=== PATIENT | male | born 1945 | race Caucasian/White ===

== ENCOUNTER → 2016-09-19 | Outpatient (CLI) | payer MEDICARE ==
[~2016-09-19] MED LIST: AMLO5TAB4 PO; AMOX-291 PO; AMOX1TAB61 PO; ASPI-496 PO; ATOR80TA PO; CITA20TA5 PO; CLOP75TA22 PO; GABA100C PO; HYDR-3307 PO; ISOS30TA PO; LISI-167 PO; METH50TA3 PO; METO25TA35 PO; REGADENOSON 0.4 MG/5 ML SYRINGE ONE; SIMV20TA PO; VANC125C11; VANCO PO; [UNRECOGNIZED DRUG - CODE] PO
== END | disposition home or self-care (01) ==
LOC: CFH 08:03
PROVIDERS: ATTEND Internal Medicine Cardiovascular Disease
DX: I10 Essential (primary) hypertension (principal); I25.10 Atherosclerotic heart disease of native coronary artery without angina pectoris; R42 Dizziness and giddiness; Z95.1 Presence of aortocoronary bypass graft
CPT/HCPCS: 78452; 93017; A9502; J2785

== ENCOUNTER 2017-10-30 15:31 | Inpatient (IN) | payer MEDICARE ==
[~2017-10-30] VITALS: Ht 180.3 cm; Wt 96.0 kg
[~2017-10-30 15:31] MED LIST changes: -AMLO5TAB2 PO; -BRIM5DRO3 EACHEYE; -CALC0.25 PO; -CHOL2000 PO; -DORZ10DR26 EACHEYE; -HYOS0.1268 PO; -LATA2.5D3 EACHEYE; -MAGNESIUM PO; -TAMS-11 PO; -[UNRECOGNIZED DRUG - OTHER] PO
[2017-10-30] MEDS ORDERED: SODIUM CHLORIDE FLUSH 10ML SYR IVF ONE (16:00)
[2017-10-30 16:34] LABS: BASOPHILS # (AUTO) 0.01 x10^3/uL (0-0.1); BASOPHILS % (AUTO) 0 % (0-1); EOSINOPHILS % (AUTO) 0 % (1-7); LYMPHOCYTES # (AUTO) 0.43 x10^3/uL (1-3.4); LYMPHOCYTES % (AUTO) 5 % (22-44); MD NO; MEAN CORPUSCULAR HEMOGLOBIN 30.5 pg (27.5-34.5); MEAN CORPUSCULAR HGB CONC 32.7 g/dL (33.2-36.2); MEAN CORPUSCULAR VOLUME 93.2 fL (81-97); MEAN PLATELET VOLUME 8.6 fL (7.4-10.4); MONOCYTES # (AUTO) 0.88 x10^3/uL (0.2-0.8); MONOCYTES % (AUTO) 9 % (2-9); NEUTROPHILS # (AUTO) 8.15 x10^3/uL (1.8-6.8); NEUTROPHILS % (AUTO) 86 % (42-75); PLATELET COUNT 197 x10^3/uL (130-400); RED BLOOD COUNT 3.68 x10^6/uL (4.38-5.82); RED CELL DISTRIBUTION WIDTH 15.7 % (9.4-14.8)
[2017-10-30 16:42] LABS: INTERNATIONAL NORMALIZED RATIO 1.04 (0.93-1.1); PROTHROMBIN TIME 10.7 Seconds (9.6-11.5)
[2017-10-30 16:45] LABS: ALBUMIN 3.1 g/dL (3.4-5.0); ANION GAP 5 mmol/L (5-15); CALCIUM 7.9 mg/dL (8.5-10.1); CHLORIDE 102 mmol/L (98-107)
[2017-10-30 16:52] LABS: CREATININE 3.49 mg/dL (0.7-1.3)
[2017-10-30 17:01] LABS: TROPONIN I 0.137 ng/mL (0.000-0.045)
[2017-10-30] MEDS ORDERED: FUROSEMIDE 40 MG/4 ML IVPush ONE (17:30)
[2017-10-30] MEDS ORDERED: NITROGLYCERIN OINT 2%, 1GM TP ONE ×2 (17:30→17:37)
[2017-10-30] MEDS ORDERED: FUROSEMIDE 40 MG/4 ML ONE (17:36)
[2017-10-30] MEDS ORDERED: HYOS0.1268 PO (18:06)
[2017-10-30] MEDS ORDERED: CALC0.25 PO (18:06)
[2017-10-30] MEDS ORDERED: AMLO5TAB2 PO (18:06)
[2017-10-30] MEDS ORDERED: [UNRECOGNIZED DRUG - OTHER] PO (18:06)
[2017-10-30] MEDS ORDERED: LATA2.5D3 EACHEYE (18:06)
[2017-10-30] MEDS ORDERED: CHOL2000 PO (18:06)
[2017-10-30] MEDS ORDERED: BRIM5DRO3 EACHEYE (18:06)
[2017-10-30] MEDS ORDERED: TAMS-11 PO (18:06)
[2017-10-30] MEDS ORDERED: DORZ10DR26 EACHEYE (18:06)
[2017-10-30] MEDS ORDERED: MAGNESIUM PO (18:06)
[2017-10-30] MEDS ORDERED: ONDANSETRON 2MG/ML, 2ML IVPush PRN (18:30)
[2017-10-30] MEDS ORDERED: ONDANSETRON ODT 4 MG PO PRN (18:30)
[2017-10-30] MEDS ORDERED: AZITHROMYCIN 500 MG in SODIUM CHLORIDE 0.9% 250 ML IV SCH (18:30)
[2017-10-30] MEDS ORDERED: hydrALAzine 20 MG/ML, 1ML IVPush PRN (18:30)
[2017-10-30] MEDS ORDERED: ASPIRIN 325 MG TABLET PO ONE (18:30)
[2017-10-30] MEDS ORDERED: ACETAMINOPHEN 325 MG TABLET PO PRN (18:30)
[2017-10-30] MEDS ORDERED: METOCLOPRAMIDE 5 MG/ML, 2ML IVPush PRN (18:30)
[2017-10-30] MEDS ORDERED: CEFTRIAXONE PMX 2GM/50ML 50 ML IV SCH (18:30)
[2017-10-30] MEDS ORDERED: HYDROcodone/APAP 10/325 MG TABLET PO PRN (18:30)
[2017-10-30 18:43] VITALS: BP 149/86
[2017-10-30 19:04] LABS: TROPONIN I 0.143 ng/mL (0.000-0.045)
[2017-10-30] MEDS: ENOXAPARIN 30 MG/0.3 ML SQ SCH (20:15)
[2017-10-30] MEDS: FAMOTIDINE 20 MG TABLET PO SCH (20:15)
[2017-10-30] MEDS: LISINOPRIL 10 MG TABLET PO SCH (20:16)
[2017-10-30] MEDS: ATORVASTATIN 80 MG TABLET PO SCH (20:16)
[2017-10-30] MEDS: METOPROLOL TARTRATE 25 MG TABLET PO SCH (20:16)
[2017-10-30] MEDS: FAMOTIDINE 20 MG/2 ML IVPush SCH (20:17)
[2017-10-30] MEDS ORDERED: ACETAZOLAMIDE PO SCH (21:00)
[2017-10-30] MEDS ORDERED: ALBUTEROL SULFATE 2.5 MG/3 ML NPPB PRN (22:00)
[2017-10-31 00:46] VITALS: BP 120/69
[2017-10-31 01:10] LABS: BASOPHILS # (AUTO) 0.02 x10^3/uL (0-0.1); BASOPHILS % (AUTO) 0 % (0-1); EOSINOPHILS % (AUTO) 0 % (1-7); LYMPHOCYTES % (AUTO) 7 % (22-44); MD NO; MEAN CORPUSCULAR HEMOGLOBIN 30.7 pg (27.5-34.5); MEAN PLATELET VOLUME 8.6 fL (7.4-10.4); MONOCYTES # (AUTO) 0.92 x10^3/uL (0.2-0.8); MONOCYTES % (AUTO) 10 % (2-9); NEUTROPHILS # (AUTO) 7.45 x10^3/uL (1.8-6.8); NEUTROPHILS % (AUTO) 83 % (42-75); PLATELET COUNT 201 x10^3/uL (130-400); RED BLOOD COUNT 3.33 x10^6/uL (4.38-5.82); RED CELL DISTRIBUTION WIDTH 15.5 % (9.4-14.8)
[2017-10-31 01:16] LABS: ANION GAP 6 mmol/L (5-15); CALCIUM 8.3 mg/dL (8.5-10.1); CHLORIDE 103 mmol/L (98-107)
[2017-10-31 01:17] LABS: CREATININE 3.55 mg/dL (0.7-1.3)
[2017-10-31] MEDS ORDERED: ASPIRIN 325 MG TABLET EC PO SCH (06:00)
[2017-10-31] MEDS: METOPROLOL TARTRATE 25 MG TABLET PO SCH ×2 (06:25→18:13)
[2017-10-31] MEDS ORDERED: FUROSEMIDE 20 MG/2 ML IV SCH (07:30)
[2017-10-31 07:56] VITALS: BP 114/70
[2017-10-31] MEDS: ALBUTEROL SULFATE 2.5 MG/3 ML NPPB SCH ×2 (08:00→17:43)
[2017-10-31] MEDS: POTASSIUM CHLORIDE 20 MEQ PACKET PO SCH (08:33)
[2017-10-31] MEDS: AMLODIPINE 5 MG TABLET PO SCH (08:34)
[2017-10-31] MEDS: CLOPIDOGREL 75 MG TABLET PO SCH (08:34)
[2017-10-31] MEDS: FAMOTIDINE 20 MG TABLET PO SCH (08:34)
[2017-10-31] MEDS: CITALOPRAM 20 MG TABLET PO SCH (08:35)
[2017-10-31] MEDS: FAMOTIDINE 20 MG/2 ML IVPush SCH (08:35)
[2017-10-31] MEDS: ISOSORBIDE MONONITRATE ER 30 MG TABLET PO SCH (08:36)
[2017-10-31] MEDS: ASPIRIN 81 MG TABLET EC PO SCH (08:36)
[2017-10-31] MEDS: LISINOPRIL 10 MG TABLET PO SCH (09:26)
[2017-10-31 11:14] LABS: TROPONIN I 0.106 ng/mL (0.000-0.045)
[2017-10-31] MEDS ORDERED: FUROSEMIDE 20 MG/2 ML IVPush ONE (11:30)
[2017-10-31] MEDS ORDERED: AMPICILLIN/SULBACTAM 1,500 MG in SODIUM CHLORIDE 0.9% 50 ML IV SCH (11:30)
[2017-10-31] MEDS ORDERED: AZITHROMYCIN 500 MG in SODIUM CHLORIDE 0.9% 250 ML IV SCH (12:00)
[2017-10-31 13:54] VITALS: BP 91/49
[2017-10-31] MEDS ORDERED: METOCLOPRAMIDE 5 MG/ML, 2ML IVPush PRN (14:54)
[2017-10-31] MEDS ORDERED: [UNRECOGNIZED DRUG - OTHER] MC SCH (15:00)
[2017-10-31] MEDS ORDERED: FAMOTIDINE 20 MG TABLET PO SCH (15:03)
[2017-10-31] MEDS: FUROSEMIDE 40 MG/4 ML IV SCH (16:09)
[2017-10-31] MEDS: ENOXAPARIN 30 MG/0.3 ML SQ SCH (18:13)
[2017-10-31 19:44] VITALS: BP 111/69
[2017-10-31] MEDS ORDERED: FUROSEMIDE 40 MG/4 ML IV SCH (20:00)
[2017-10-31] MEDS ORDERED: POTASSIUM CHLORIDE 20 MEQ TAB.ER.PRT PO ONE (20:00)
[2017-10-31] MEDS ORDERED: FUROSEMIDE 40 MG/4 ML IV ONE (21:00)
[2017-10-31] MEDS: ATORVASTATIN 80 MG TABLET PO SCH (21:00)
[2017-10-31] MEDS: morphine SULFATE 10 MG/ML, 1ML IVPush PRN ×2 (21:13→23:49)
[2017-10-31] MEDS ORDERED: AMPICILLIN/SULBACTAM 3 GM in SODIUM CHLORIDE 0.9% 100 ML IV SCH (23:00)
[2017-11-01 01:32] LABS: CHLORIDE,URINE RANDOM 51 mmol/L; POTASSIUM,URINE RANDOM 48 mmol/L; SODIUM,URINE RANDOM 38 mmol/L
[2017-11-01 01:55] VITALS: BP 103/64
[2017-11-01] MEDS: morphine SULFATE 10 MG/ML, 1ML IVPush PRN (02:52)
[2017-11-01 05:27] LABS: BASOPHILS # (AUTO) 0.04 x10^3/uL (0-0.1); BASOPHILS % (AUTO) 1 % (0-1); EOSINOPHILS # (AUTO) 0.09 x10^3/uL (0-0.4); EOSINOPHILS % (AUTO) 1 % (1-7); LYMPHOCYTES # (AUTO) 0.75 x10^3/uL (1-3.4); LYMPHOCYTES % (AUTO) 11 % (22-44); MD NO; MEAN CORPUSCULAR HEMOGLOBIN 30.4 pg (27.5-34.5); MEAN CORPUSCULAR HGB CONC 32.5 g/dL (33.2-36.2); MEAN CORPUSCULAR VOLUME 93.4 fL (81-97); MEAN PLATELET VOLUME 8.5 fL (7.4-10.4); MONOCYTES # (AUTO) 0.71 x10^3/uL (0.2-0.8); MONOCYTES % (AUTO) 10 % (2-9); NEUTROPHILS # (AUTO) 5.38 x10^3/uL (1.8-6.8); NEUTROPHILS % (AUTO) 77 % (42-75); PLATELET COUNT 214 x10^3/uL (130-400); RED BLOOD COUNT 3.29 x10^6/uL (4.38-5.82); RED CELL DISTRIBUTION WIDTH 15.9 % (9.4-14.8)
[2017-11-01 05:33] LABS: CHLORIDE 104 mmol/L (98-107)
[2017-11-01 05:50] LABS: ALANINE AMINOTRANSFERASE 24 U/L (12-78); ALBUMIN 2.7 g/dL (3.4-5.0); ALKALINE PHOSPHATASE 64 U/L (45-117); ANION GAP 5 mmol/L (5-15); BILIRUBIN,TOTAL 0.5 mg/dL (0.2-1.0); CALCIUM 7.9 mg/dL (8.5-10.1); TOTAL PROTEIN 6.8 g/dL (6.4-8.2)
[2017-11-01] MEDS: METOPROLOL TARTRATE 25 MG TABLET PO SCH ×2 (06:25→17:32)
[2017-11-01] MEDS: ALBUTEROL SULFATE 2.5 MG/3 ML NPPB SCH (07:45)
[2017-11-01] MEDS: ISOSORBIDE MONONITRATE ER 30 MG TABLET PO SCH (08:19)
[2017-11-01] MEDS: FUROSEMIDE 40 MG/4 ML IV SCH (08:19)
[2017-11-01] MEDS: AMLODIPINE 5 MG TABLET PO SCH (08:19)
[2017-11-01] MEDS: CLOPIDOGREL 75 MG TABLET PO SCH (08:19)
[2017-11-01] MEDS: POTASSIUM CHLORIDE 20 MEQ PACKET PO SCH (08:19)
[2017-11-01] MEDS: CITALOPRAM 20 MG TABLET PO SCH (08:19)
[2017-11-01] MEDS: ASPIRIN 81 MG TABLET EC PO SCH (08:19)
[2017-11-01] MEDS: FAMOTIDINE 20 MG TABLET PO SCH (08:19)
[2017-11-01 08:53] VITALS: BP 114/72
[2017-11-01] MEDS ORDERED: FUROSEMIDE 100 MG/10 ML IV ONE (10:30)
[2017-11-01] MEDS: TAMSULOSIN 0.4 MG CAP.ER.24H PO SCH (10:56)
[2017-11-01] MEDS: BRIMONIDINE TARTRATE OPHTH 0.15%, 5ML EACHEYE SCH ×2 (10:56→20:12)
[2017-11-01] MEDS: DORZOLAMIDE OPHTH 2%, 10ML EACHEYE SCH ×2 (10:56→20:12)
[2017-11-01 15:58] VITALS: BP 109/65
[2017-11-01] MEDS: ENOXAPARIN 30 MG/0.3 ML SQ SCH (17:32)
[2017-11-01 19:35] VITALS: BP 100/51
[2017-11-01] MEDS: LATANOPROST OPHTH 0.005%, 2.5ML EACHEYE SCH (20:12)
[2017-11-01] MEDS: ATORVASTATIN 80 MG TABLET PO SCH (20:12)
[2017-11-02 03:21] VITALS: BP 97/49
[2017-11-02 05:31] LABS: BASOPHILS # (AUTO) 0.01 x10^3/uL (0-0.1); BASOPHILS % (AUTO) 0 % (0-1); EOSINOPHILS # (AUTO) 0.06 x10^3/uL (0-0.4); EOSINOPHILS % (AUTO) 1 % (1-7); LYMPHOCYTES # (AUTO) 0.62 x10^3/uL (1-3.4); LYMPHOCYTES % (AUTO) 8 % (22-44); MD NO; MEAN CORPUSCULAR HEMOGLOBIN 29.7 pg (27.5-34.5); MEAN CORPUSCULAR HGB CONC 31.7 g/dL (33.2-36.2); MEAN CORPUSCULAR VOLUME 93.7 fL (81-97); MEAN PLATELET VOLUME 8.6 fL (7.4-10.4); MONOCYTES # (AUTO) 0.56 x10^3/uL (0.2-0.8); MONOCYTES % (AUTO) 8 % (2-9); NEUTROPHILS # (AUTO) 6.15 x10^3/uL (1.8-6.8); NEUTROPHILS % (AUTO) 83 % (42-75); PLATELET COUNT 230 x10^3/uL (130-400); RED BLOOD COUNT 3.29 x10^6/uL (4.38-5.82); RED CELL DISTRIBUTION WIDTH 15.5 % (9.4-14.8)
[2017-11-02 05:40] LABS: CALCIUM 8.3 mg/dL (8.5-10.1); CREATININE 5.92 mg/dL (0.7-1.3)
[2017-11-02 05:53] LABS: ANION GAP 5 mmol/L (5-15); CHLORIDE 103 mmol/L (98-107)
[2017-11-02] MEDS: METOPROLOL TARTRATE 25 MG TABLET PO SCH (05:58)
[2017-11-02] MEDS ORDERED: SODIUM POLYSTYRENE SULFONATE ORAL SUSP PO ONE (07:30)
[2017-11-02] MEDS: HEPARIN 5,000 UNITS/ML, 1ML SQ SCH ×3 (07:30→23:30)
[2017-11-02] MEDS ORDERED: INSULIN REGULAR 100 UNITS/ML, 3ML VIAL IVPush ONE (07:30)
[2017-11-02] MEDS ORDERED: CALCIUM GLUCONATE 4.6 MEQ in SODIUM CHLORIDE 0.9% 50 ML IV ONE (07:30)
[2017-11-02] MEDS ORDERED: DEXTROSE 50%, 50ML VIAL IVPush ONE (07:30)
[2017-11-02] MEDS ORDERED: DEXTROSE 50%, 50ML SYRINGE IVPush ONE (08:00)
[2017-11-02 08:39] VITALS: BP 100/67
[2017-11-02] MEDS: ASPIRIN 81 MG TABLET EC PO SCH (08:49)
[2017-11-02] MEDS: BRIMONIDINE TARTRATE OPHTH 0.15%, 5ML EACHEYE SCH ×2 (08:50→21:23)
[2017-11-02] MEDS: TAMSULOSIN 0.4 MG CAP.ER.24H PO SCH (08:51)
[2017-11-02] MEDS: CITALOPRAM 20 MG TABLET PO SCH (08:52)
[2017-11-02] MEDS: DORZOLAMIDE OPHTH 2%, 10ML EACHEYE SCH ×2 (08:55→21:23)
[2017-11-02] MEDS: CLOPIDOGREL 75 MG TABLET PO SCH (09:00)
[2017-11-02] MEDS ORDERED: ARANESP 100 MCG/ML **ESRD SQ SCH (10:30)
[2017-11-02 10:54] LABS: ANION GAP 6 mmol/L (5-15); CHLORIDE 103 mmol/L (98-107); CREATININE 6.19 mg/dL (0.7-1.3)
[2017-11-02] MEDS ORDERED: SODIUM BICARB 8.4%, 50ML SYRINGE IVPush STA (13:10)
[2017-11-02] MEDS ORDERED: NOREPINEPHRINE 1 MG/ML, 4ML ONE (13:26)
[2017-11-02] MEDS ORDERED: NOREPINEPHRINE 16 MG in SODIUM CHLORIDE 0.9% 234 ML IV PRN (15:00)
[2017-11-02] MEDS: FAMOTIDINE 20 MG TABLET PO SCH (17:15)
[2017-11-02] MEDS: ISOSORBIDE MONONITRATE ER 30 MG TABLET PO SCH (17:15)
[2017-11-02] MEDS: ATORVASTATIN 80 MG TABLET PO SCH (21:00)
[2017-11-02] MEDS: LATANOPROST OPHTH 0.005%, 2.5ML EACHEYE SCH (21:23)
[2017-11-03 04:31] LABS: BASOPHILS # (AUTO) 0.03 x10^3/uL (0-0.1); BASOPHILS % (AUTO) 1 % (0-1); EOSINOPHILS # (AUTO) 0.05 x10^3/uL (0-0.4); EOSINOPHILS % (AUTO) 1 % (1-7); LYMPHOCYTES # (AUTO) 0.76 x10^3/uL (1-3.4); LYMPHOCYTES % (AUTO) 13 % (22-44); MD NO; MEAN CORPUSCULAR HEMOGLOBIN 30.4 pg (27.5-34.5); MEAN CORPUSCULAR HGB CONC 32.5 g/dL (33.2-36.2); MEAN CORPUSCULAR VOLUME 93.4 fL (81-97); MEAN PLATELET VOLUME 8.3 fL (7.4-10.4); MONOCYTES # (AUTO) 0.64 x10^3/uL (0.2-0.8); MONOCYTES % (AUTO) 11 % (2-9); NEUTROPHILS # (AUTO) 4.54 x10^3/uL (1.8-6.8); NEUTROPHILS % (AUTO) 76 % (42-75); PLATELET COUNT 207 x10^3/uL (130-400); RED BLOOD COUNT 3.29 x10^6/uL (4.38-5.82); RED CELL DISTRIBUTION WIDTH 15.4 % (9.4-14.8)
[2017-11-03 04:42] LABS: ALANINE AMINOTRANSFERASE 21 U/L (12-78); ALBUMIN 2.6 g/dL (3.4-5.0); ANION GAP 8 mmol/L (5-15); CALCIUM 8.2 mg/dL (8.5-10.1); CHLORIDE 102 mmol/L (98-107); CREATININE 5.57 mg/dL (0.7-1.3)
[2017-11-03 04:44] LABS: ALKALINE PHOSPHATASE 59 U/L (45-117); BILIRUBIN,TOTAL 0.7 mg/dL (0.2-1.0); TOTAL PROTEIN 6.4 g/dL (6.4-8.2)
[2017-11-03] MEDS: ALBUTEROL SULFATE 2.5 MG/3 ML NPPB SCH ×3 (08:40→19:53)
[2017-11-03] MEDS: ISOSORBIDE MONONITRATE ER 30 MG TABLET PO SCH (08:52)
[2017-11-03] MEDS: HEPARIN 5,000 UNITS/ML, 1ML SQ SCH ×3 (09:14→23:48)
[2017-11-03] MEDS: DORZOLAMIDE OPHTH 2%, 10ML EACHEYE SCH (09:15)
[2017-11-03] MEDS: FAMOTIDINE 20 MG TABLET PO SCH (09:15)
[2017-11-03] MEDS: BRIMONIDINE TARTRATE OPHTH 0.15%, 5ML EACHEYE SCH (09:15)
[2017-11-03] MEDS: TAMSULOSIN 0.4 MG CAP.ER.24H PO SCH (09:15)
[2017-11-03] MEDS: ASPIRIN 81 MG TABLET EC PO SCH (09:15)
[2017-11-03] MEDS: CITALOPRAM 20 MG TABLET PO SCH (09:15)
[2017-11-03] MEDS: CLOPIDOGREL 75 MG TABLET PO SCH (09:15)
[2017-11-03] MEDS ORDERED: ALBUMIN HUMAN 25% 50 ML IV PRN (09:30)
[2017-11-03 20:09] VITALS: BP 125/56
[2017-11-03] MEDS: ATORVASTATIN 80 MG TABLET PO SCH (21:03)
[2017-11-03] MEDS: DORZOLAMIDE OPHTH 2%, 10ML LEFTEYE SCH (21:04)
[2017-11-03] MEDS: BRIMONIDINE TARTRATE OPHTH 0.15%, 5ML LEFTEYE SCH (21:05)
[2017-11-03] MEDS: LATANOPROST OPHTH 0.005%, 2.5ML LEFTEYE SCH (21:25)
[2017-11-04 02:00] VITALS: BP 128/75
[2017-11-04] MEDS: HEPARIN 5,000 UNITS/ML, 1ML SQ SCH ×2 (07:36→16:08)
[2017-11-04 09:08] VITALS: BP 106/50
[2017-11-04] MEDS: TAMSULOSIN 0.4 MG CAP.ER.24H PO SCH (09:10)
[2017-11-04] MEDS: ASPIRIN 81 MG TABLET EC PO SCH (09:10)
[2017-11-04] MEDS: BRIMONIDINE TARTRATE OPHTH 0.15%, 5ML LEFTEYE SCH ×2 (09:10→21:28)
[2017-11-04] MEDS: CLOPIDOGREL 75 MG TABLET PO SCH (09:10)
[2017-11-04] MEDS: DORZOLAMIDE OPHTH 2%, 10ML LEFTEYE SCH ×2 (09:10→21:28)
[2017-11-04] MEDS: CITALOPRAM 20 MG TABLET PO SCH (09:10)
[2017-11-04] MEDS: FAMOTIDINE 20 MG TABLET PO SCH (09:10)
[2017-11-04] MEDS: ALBUTEROL SULFATE 2.5 MG/3 ML NPPB SCH (09:30)
[2017-11-04] MEDS: ISOSORBIDE MONONITRATE ER 30 MG TABLET PO SCH (10:12)
[2017-11-04 14:31] VITALS: BP 110/60
[2017-11-04] MEDS ORDERED: LACTULOSE 20 GM/30 ML UDC PO PRN (17:00)
[2017-11-04] MEDS ORDERED: BISACODYL 10 MG SUPP PR PRN (17:00)
[2017-11-04 19:22] VITALS: BP 128/75
[2017-11-04] MEDS: SENNA/DOCUSATE TABLET PO SCH (21:00)
[2017-11-04] MEDS ORDERED: ALBUTEROL SULFATE 2.5 MG/3 ML NPPB SCH (21:00)
[2017-11-04] MEDS: ATORVASTATIN 80 MG TABLET PO SCH (21:26)
[2017-11-04] MEDS: LATANOPROST OPHTH 0.005%, 2.5ML LEFTEYE SCH (21:27)
[2017-11-05 00:35] VITALS: BP 122/77
[2017-11-05] MEDS: HEPARIN 5,000 UNITS/ML, 1ML SQ SCH ×3 (00:36→17:52)
[2017-11-05 05:06] LABS: ALANINE AMINOTRANSFERASE 44 U/L (12-78); ALBUMIN 2.7 g/dL (3.4-5.0); ANION GAP 7 mmol/L (5-15); CALCIUM 8.4 mg/dL (8.5-10.1); CHLORIDE 103 mmol/L (98-107); CREATININE 3.52 mg/dL (0.7-1.3)
[2017-11-05 05:08] LABS: ALKALINE PHOSPHATASE 64 U/L (45-117); BILIRUBIN,TOTAL 0.8 mg/dL (0.2-1.0); TOTAL PROTEIN 6.4 g/dL (6.4-8.2)
[2017-11-05 05:19] LABS: BASOPHILS # (AUTO) 0.03 x10^3/uL (0-0.1); BASOPHILS % (AUTO) 1 % (0-1); EOSINOPHILS # (AUTO) 0.09 x10^3/uL (0-0.4); EOSINOPHILS % (AUTO) 1 % (1-7); LYMPHOCYTES # (AUTO) 0.85 x10^3/uL (1-3.4); LYMPHOCYTES % (AUTO) 13 % (22-44); MD NO; MEAN CORPUSCULAR HEMOGLOBIN 30.4 pg (27.5-34.5); MEAN CORPUSCULAR HGB CONC 32.8 g/dL (33.2-36.2); MEAN CORPUSCULAR VOLUME 92.5 fL (81-97); MEAN PLATELET VOLUME 8.6 fL (7.4-10.4); MONOCYTES # (AUTO) 0.77 x10^3/uL (0.2-0.8); MONOCYTES % (AUTO) 12 % (2-9); NEUTROPHILS % (AUTO) 73 % (42-75); PLATELET COUNT 226 x10^3/uL (130-400); RED CELL DISTRIBUTION WIDTH 15.2 % (9.4-14.8)
[2017-11-05 06:44] VITALS: BP 135/65
[2017-11-05] MEDS: ISOSORBIDE MONONITRATE ER 30 MG TABLET PO SCH (09:27)
[2017-11-05] MEDS: DORZOLAMIDE OPHTH 2%, 10ML LEFTEYE SCH ×2 (09:41→20:17)
[2017-11-05] MEDS: BRIMONIDINE TARTRATE OPHTH 0.15%, 5ML LEFTEYE SCH ×2 (09:41→20:16)
[2017-11-05] MEDS: FAMOTIDINE 20 MG TABLET PO SCH (09:42)
[2017-11-05] MEDS: CITALOPRAM 20 MG TABLET PO SCH (09:42)
[2017-11-05] MEDS: DOCUSATE 100 MG CAPSULE PO SCH (09:42)
[2017-11-05] MEDS: TAMSULOSIN 0.4 MG CAP.ER.24H PO SCH (09:42)
[2017-11-05] MEDS: ASPIRIN 81 MG TABLET EC PO SCH (09:42)
[2017-11-05] MEDS: CLOPIDOGREL 75 MG TABLET PO SCH (09:42)
[2017-11-05] MEDS ORDERED: SIMETHICONE 80 MG CHEW TAB PO PRN (12:30)
[2017-11-05 14:05] VITALS: BP 125/75
[2017-11-05 19:17] VITALS: BP 148/79
[2017-11-05 20:00] VITALS: BP 145/85
[2017-11-05 20:10] VITALS: BP 148/85
[2017-11-05] MEDS: LATANOPROST OPHTH 0.005%, 2.5ML LEFTEYE SCH (20:17)
[2017-11-05] MEDS: SENNA/DOCUSATE TABLET PO SCH (20:17)
[2017-11-05] MEDS: ATORVASTATIN 80 MG TABLET PO SCH (20:17)
[2017-11-06] MEDS: HEPARIN 5,000 UNITS/ML, 1ML SQ SCH ×3 (02:31→17:29)
[2017-11-06 02:59] VITALS: BP 139/78
[2017-11-06 07:26] VITALS: BP 157/80
[2017-11-06 08:23] LABS: BASOPHILS # (AUTO) 0.03 x10^3/uL (0-0.1); BASOPHILS % (AUTO) 1 % (0-1); EOSINOPHILS # (AUTO) 0.09 x10^3/uL (0-0.4); EOSINOPHILS % (AUTO) 1 % (1-7); LYMPHOCYTES # (AUTO) 1.02 x10^3/uL (1-3.4); LYMPHOCYTES % (AUTO) 16 % (22-44); MD NO; MEAN CORPUSCULAR HEMOGLOBIN 29.8 pg (27.5-34.5); MEAN CORPUSCULAR HGB CONC 32.3 g/dL (33.2-36.2); MEAN CORPUSCULAR VOLUME 92.1 fL (81-97); MEAN PLATELET VOLUME 8.1 fL (7.4-10.4); MONOCYTES # (AUTO) 0.66 x10^3/uL (0.2-0.8); MONOCYTES % (AUTO) 10 % (2-9); NEUTROPHILS # (AUTO) 4.56 x10^3/uL (1.8-6.8); NEUTROPHILS % (AUTO) 72 % (42-75); PLATELET COUNT 244 x10^3/uL (130-400); RED BLOOD COUNT 3.75 x10^6/uL (4.38-5.82); RED CELL DISTRIBUTION WIDTH 15.4 % (9.4-14.8)
[2017-11-06 08:35] LABS: ANION GAP 6 mmol/L (5-15); CALCIUM 8.6 mg/dL (8.5-10.1); CHLORIDE 102 mmol/L (98-107)
[2017-11-06 08:36] LABS: CREATININE 3.33 mg/dL (0.7-1.3)
[2017-11-06] MEDS: DORZOLAMIDE OPHTH 2%, 10ML LEFTEYE SCH ×2 (09:17→21:28)
[2017-11-06] MEDS: BRIMONIDINE TARTRATE OPHTH 0.15%, 5ML LEFTEYE SCH ×2 (09:17→21:29)
[2017-11-06] MEDS: ISOSORBIDE MONONITRATE ER 30 MG TABLET PO SCH (09:17)
[2017-11-06] MEDS: ASPIRIN 81 MG TABLET EC PO SCH (09:17)
[2017-11-06] MEDS: DOCUSATE 100 MG CAPSULE PO SCH (09:18)
[2017-11-06] MEDS: CITALOPRAM 20 MG TABLET PO SCH (09:18)
[2017-11-06] MEDS: FAMOTIDINE 20 MG TABLET PO SCH (09:18)
[2017-11-06] MEDS: TAMSULOSIN 0.4 MG CAP.ER.24H PO SCH (09:18)
[2017-11-06] MEDS: CLOPIDOGREL 75 MG TABLET PO SCH (09:18)
[2017-11-06 13:31] VITALS: BP 122/75
[2017-11-06] MEDS: ATORVASTATIN 80 MG TABLET PO SCH (21:29)
[2017-11-06] MEDS: LATANOPROST OPHTH 0.005%, 2.5ML LEFTEYE SCH (21:29)
[2017-11-06 21:33] VITALS: BP 112/69
[2017-11-07] MEDS: HEPARIN 5,000 UNITS/ML, 1ML SQ SCH ×2 (01:29→09:29)
[2017-11-07 03:35] VITALS: BP 124/75
[2017-11-07 04:46] LABS: ALANINE AMINOTRANSFERASE 40 U/L (12-78); ALBUMIN 2.6 g/dL (3.4-5.0); ANION GAP 6 mmol/L (5-15); CALCIUM 8.2 mg/dL (8.5-10.1); CHLORIDE 103 mmol/L (98-107); CREATININE 3.35 mg/dL (0.7-1.3)
[2017-11-07 04:48] LABS: ALKALINE PHOSPHATASE 58 U/L (45-117); BILIRUBIN,TOTAL 0.6 mg/dL (0.2-1.0)
[2017-11-07 07:49] VITALS: BP 126/75
[2017-11-07] MEDS: DOCUSATE 100 MG CAPSULE PO SCH (09:00)
[2017-11-07] MEDS: CLOPIDOGREL 75 MG TABLET PO SCH (09:29)
[2017-11-07] MEDS: BRIMONIDINE TARTRATE OPHTH 0.15%, 5ML LEFTEYE SCH (09:29)
[2017-11-07] MEDS: DORZOLAMIDE OPHTH 2%, 10ML LEFTEYE SCH (09:29)
[2017-11-07] MEDS: FAMOTIDINE 20 MG TABLET PO SCH (09:30)
[2017-11-07] MEDS: ASPIRIN 81 MG TABLET EC PO SCH (09:30)
[2017-11-07] MEDS: ISOSORBIDE MONONITRATE ER 30 MG TABLET PO SCH (09:30)
[2017-11-07] MEDS: TAMSULOSIN 0.4 MG CAP.ER.24H PO SCH (09:30)
[2017-11-07] MEDS: CITALOPRAM 20 MG TABLET PO SCH (09:30)
[2017-11-07] MEDS ORDERED: CLOP75TA PO (13:18)
[2017-11-07] MEDS ORDERED: ISOS30TA8 PO (13:18)
[2017-11-07] MEDS ORDERED: FAMO20TA7 PO (13:18)
[2017-11-07 13:35] VITALS: BP 115/70
== END 2017-11-07 17:36 | disposition home or self-care (01) | DRG 682 ==
LOC: ED 16:56 → EDIP 17:31 → 5SO 18:37 → CCU 11-02 13:22 → 5SO 11-04 19:34 → 4WST 11-05 19:49
PROVIDERS: ADMIT Internal Medicine; ATTEND Internal Medicine
PROC: 02HV33Z Insertion of Infusion Device into Superior Vena Cava, Percutaneous Approach (ICD-10-PCS; principal; 2017-11-02)
PROC: B5181ZA Fluoroscopy of Superior Vena Cava using Low Osmolar Contrast, Guidance (ICD-10-PCS; 2017-11-02)
PROC: B548ZZA Ultrasonography of Superior Vena Cava, Guidance (ICD-10-PCS; 2017-11-02)
PROC: 5A1D70Z Performance of Urinary Filtration, Intermittent, Less than 6 Hours Per Day (ICD-10-PCS; 2017-11-02)
PROC: 5A1D70Z Performance of Urinary Filtration, Intermittent, Less than 6 Hours Per Day (ICD-10-PCS; 2017-11-03)
PROC: 5A1D70Z Performance of Urinary Filtration, Intermittent, Less than 6 Hours Per Day (ICD-10-PCS; 2017-11-04)
DX: N17.9 Acute kidney failure, unspecified (principal); J96.21 Acute and chronic respiratory failure with hypoxia; E43 Unspecified severe protein-calorie malnutrition; J96.22 Acute and chronic respiratory failure with hypercapnia; I50.33 Acute on chronic diastolic (congestive) heart failure; J18.9 Pneumonia, unspecified organism; G93.40 Encephalopathy, unspecified; E87.4 Mixed disorder of acid-base balance; J98.11 Atelectasis; I13.0 Hypertensive heart and chronic kidney disease with heart failure and stage 1 through stage 4 chronic kidney disease, or unspecified chronic kidney disease; R33.9 Retention of urine, unspecified; D63.1 Anemia in chronic kidney disease; E87.5 Hyperkalemia; I25.10 Atherosclerotic heart disease of native coronary artery without angina pectoris; I35.0 Nonrheumatic aortic (valve) stenosis; Z99.81 Dependence on supplemental oxygen; N18.4 Chronic kidney disease, stage 4 (severe); G47.9 Sleep disorder, unspecified; Z77.22 Contact with and (suspected) exposure to environmental tobacco smoke (acute) (chronic); Z80.1 Family history of malignant neoplasm of trachea, bronchus and lung; Z89.512 Acquired absence of left leg below knee; Z95.1 Presence of aortocoronary bypass graft; Z99.2 Dependence on renal dialysis; Z68.29 Body mass index [BMI] 29.0-29.9, adult; Z79.899 Other long term (current) drug therapy
CPT/HCPCS: 36415; 36556; 36600; 71045; 71046; 71250; 76770; 76937; 77001; 78582; 80048; 80053; 82040; 82436; 82533; 82728; 82803; 83540; 83550; 83690; 83735; 83880; 84100; 84133; 84145; 84300; 84484; 85025; 85610; 85730; 86704; 86706; 86803; 87081; 87340; 93005; 93970; 94640; 96374; C1894; J0456; J0610; J0696; J0882; J1644; J1650; J1815; J1940; J2405; J7613; A9540; A9558; C1751; C9898; J0295; J1642; J2270; J7050

== ENCOUNTER → 2017-10-30 | Outpatient (CLI) | payer MEDICARE ==
[~2017-10-30] MED LIST changes: +AMLO5TAB2 PO; +BRIM5DRO3 EACHEYE; +CALC0.25 PO; +CHOL2000 PO; -CITA20TA5 PO; +CITA20TA6 PO; -CLOP75TA22 PO; +CLOP75TA52 PO; +DORZ10DR26 EACHEYE; +HYOS0.1268 PO; +LATA2.5D3 EACHEYE; +MAGNESIUM PO; -REGADENOSON 0.4 MG/5 ML SYRINGE ONE; +TAMS-11 PO; +[UNRECOGNIZED DRUG - OTHER] PO
== END | disposition home or self-care (01) ==
LOC: CVU 11:23
PROVIDERS: ATTEND Internal Medicine Cardiovascular Disease
DX: I08.0 Rheumatic disorders of both mitral and aortic valves (principal); I10 Essential (primary) hypertension; Z86.73 Personal history of transient ischemic attack (TIA), and cerebral infarction without residual deficits; Z95.1 Presence of aortocoronary bypass graft
CPT/HCPCS: C8929

== ENCOUNTER 2017-12-21 12:04 | Day surgery (SDC) | payer MEDICARE ==
[~2017-12-21] VITALS: Ht 180.3 cm; Wt 102.5 kg
[~2017-12-21 12:04] MED LIST changes: +AMLO5TAB2 PO; +BRIM5DRO3 EACHEYE; +CALC0.25 PO; +CHOL2000 PO; +CLOP75TA PO; +DORZ10DR26 EACHEYE; +FAMO20TA7 PO; +HYOS0.1268 PO; +ISOS30TA8 PO; +LATA2.5D3 EACHEYE; +MAGNESIUM PO; +TAMS-11 PO; +[UNRECOGNIZED DRUG - OTHER] PO
[2017-12-21] MEDS ORDERED: LIDOCAINE-MPF 2%, 2ML ONE (12:27)
[2017-12-21] MEDS ORDERED: SODIUM CHLORIDE 0.9% 1,000 ML IV SCH (12:50)
[2017-12-21] MEDS ORDERED: PLEASE ENTER HEIGHT AND WEIGHT MC SCH (13:00)
[2017-12-21] MEDS ORDERED: CEFAZOLIN PMX 1GM/50ML 50 ML IV ONE (13:07)
[2017-12-21 13:22] VITALS: BP 138/79
[2017-12-21] MEDS ORDERED: FENTANYL PF 100 MCG/2ML ONE (13:54)
[2017-12-21] MEDS ORDERED: MIDAZOLAM 1 MG/ML, 5ML ONE ×2 (13:54)
[2017-12-21] MEDS ORDERED: FLUMAZENIL 0.1 MG/1 ML, 5ML ONE (13:55)
[2017-12-21] MEDS ORDERED: NALOXONE 1 MG/ML, 2ML ONE (13:55)
== END 2017-12-21 16:15 | disposition home or self-care (01) ==
LOC: OUT 12:04
PROVIDERS: ATTEND Urology
DX: N35.9 Urethral stricture, unspecified (principal); E78.2 Mixed hyperlipidemia; I65.29 Occlusion and stenosis of unspecified carotid artery; I70.208 Unspecified atherosclerosis of native arteries of extremities, other extremity; J18.9 Pneumonia, unspecified organism; E11.22 Type 2 diabetes mellitus with diabetic chronic kidney disease; I13.2 Hypertensive heart and chronic kidney disease with heart failure and with stage 5 chronic kidney disease, or end stage renal disease; N18.5 Chronic kidney disease, stage 5; I50.814 Right heart failure due to left heart failure; D60.9 Acquired pure red cell aplasia, unspecified; E66.9 Obesity, unspecified; Z95.1 Presence of aortocoronary bypass graft; Z98.890 Other specified postprocedural states; Z89.512 Acquired absence of left leg below knee; Z79.82 Long term (current) use of aspirin; Z79.899 Other long term (current) drug therapy; Z86.14 Personal history of Methicillin resistant Staphylococcus aureus infection; Z68.29 Body mass index [BMI] 29.0-29.9, adult; Z87.01 Personal history of pneumonia (recurrent); Z98.84 Bariatric surgery status
CPT/HCPCS: 51040; 75989; 99156; 99157; C1725; C1769; J0690; J2250; J3010; J3490; J7030; J2310